=== PATIENT | female | born 1965 | race Caucasian/White ===

== ENCOUNTER → 2021-05-06 | Outpatient (CLI) | payer OTHER ==
[2021-05-06 10:11] LABS: HEMOGLOBIN 12.9 gm/dl (12.3-15.3); RED BLOOD COUNT 4.2 M/UL (4.00-5.10); WHITE BLOOD COUNT 8.4 K/UL (4.5-11.0)
[2021-05-06 10:37] LABS: BUN/CREATININE RATIO 11 (0-10)
== END ==
LOC: LAB 09:19
PROVIDERS: Internal Medicine
DX: M25.50 Pain in unspecified joint (principal); R76.8 Other specified abnormal immunological findings in serum; M35.00 Sjogren syndrome, unspecified; D89.89 Other specified disorders involving the immune mechanism, not elsewhere classified; M19.90 Unspecified osteoarthritis, unspecified site; K90.0 Celiac disease
CPT/HCPCS: 36415; 80053; 83520; 85025; 85652; 86140; 86200; 86431